=== PATIENT | male | born 1955 | race Caucasian/White ===

== ENCOUNTER 2017-10-14 03:40 | Emergency (ER) | payer BC ==
[~2017-10-14] VITALS: Ht 177.8 cm; Wt 72.6 kg
--- NOTE | 2017-10-14 03:58 | ER Report ---
History and Physical Time Seen By MD: 03:58 Hx. of Stated Complaint: PT REPORTS THAT HE HAS BEEN SICK FOR TWO DAYS. REPORTS HAVING FEELING OF SOB. DRY COUGH. BODY ACHES AND LOW GRADE FEVER. HPI/ROS CHIEF COMPLAINT: cough, shortness of breath and body aches HISTORY OF PRESENT ILLNESS: This is a 61-year-old male. He's been having a couple of days of symptoms of shortness of breath and cough. He also has been having body aches. These have been going on for 2 days now. Also having subjective fevers. Having some sore throat and congestion. Having nausea at times. Nothing seems to make this worse or better, although he did try some benzonatate capsules that helped. No problems with bowels or urination. Allergies: Coded Allergies: No Known Drug Allergies (Unverified , 10/14/17) Home Meds Active Scripts Benzonatate 100 Mg Cap (TESSALON PERLE 100 MG CAP) 100 Mg Capsule, 100 MG PO TID , #30 CAP 0 Refills Prov:ABEL ROBLES MD 10/14/17 Amoxicillin/Pot Clav 875-125 Mg Tab (AUGMENTIN 875-125 TABLET) 1 Each Tablet, 1 TAB PO Q12H, #20 TAB 0 Refills Prov:ABEL ROBLES MD 10/14/17 Reviewed Nurses Notes: Yes Hx Substance Use Disorder: No Hx Alcohol Use: Yes (SOCIAL DRINKER ) Constitutional Vital Sign - Last 24 Hours 10/14/17 10/14/17 10/14/17 10/14/17 03:45 03:49 04:00 04:30 Temp 98.7 Pulse 89 93 82 Resp 16 20 B/P (MAP) 185/99 (127) 185/99 159/97 (117) 150/84 (106) Pulse Ox 91 87 87 O2 Delivery Room Air 10/14/17 10/14/17 10/14/17 10/14/17 05:00 05:15 05:30 05:43 Pulse 87 92 90 87 Resp 20 18 23 16 B/P (MAP) 159/86 (110) 161/95 (117) 150/102 (118) Pulse Ox 88 88 88 92 O2 Delivery Room Air Physical Exam General Appearance: The patient is alert, has no immediate need for airway protection and no current signs of toxicity. Eyes: Pupils equal and round no injection. ENT: Normal oral mucosa. Moist mucous membranes. Erythematous throat. Normal tympanic membranes and canals. Neck: Neck is supple, he does have some submandibular lymphadenopathy. Respiratory: Chest is non tender, lungs are clear to auscultation. Cardiac: regular rate and rhythm Gastrointestinal: Abdomen is soft and non tender, no masses, bowel sounds normal. Musculoskeletal: Extremities have full range of motion. Skin: No rashes or lesions. [ ] DIFFERENTIAL DIAGNOSIS: After history and physical exam differential diagnosis was considered for patient with upper respiratory symptoms subjective of influenza, also will check a strep and chest x-ray. Medical Decision Making Data Points Result Diagram: 10/14/17 0350 10/14/17 0350 Laboratory Hematology Test 10/14/17 03:50 Red Blood Count 5.37 M/uL (4.00-5.60) Mean Corpuscular Volume 91.0 fL (80.0-96.0) Mean Corpuscular Hemoglobin 31.5 pg (26.0-33.0) Mean Corpuscular Hemoglobin Concent 34.6 g/dL (32.0-36.0) Red Cell Distribution Width 13.9 % (11.5-14.5) Mean Platelet Volume 9.9 fL (7.2-11.1) Neutrophils (%) (Auto) 73.8 % (39.4-72.5) Lymphocytes (%) (Auto) 12.0 % (17.6-49.6) Monocytes (%) (Auto) 9.6 % (4.1-12.4) Eosinophils (%) (Auto) 1.8 % (0.4-6.7) Basophils (%) (Auto) 2.8 % (0.3-1.4) Nucleated RBC Relative Count (auto) 0.1 /100WBC Neutrophils # (Auto) 6.1 K/uL (2.0-7.4) Lymphocytes # (Auto) 1.0 K/uL (1.3-3.6) Monocytes # (Auto) 0.8 K/uL (0.3-1.0) Eosinophils # (Auto) 0.2 K/uL (0.0-0.5) Basophils # (Auto) 0.2 K/uL (0.0-0.1) Nucleated RBC Absolute Count (auto) 0.01 K/uL Sodium Level 133 mmol/L (137-145) Potassium Level 4.1 mmol/L (3.5-5.0) Chloride Level 99 mmol/L (98-107) Carbon Dioxide Level 21 mmol/L (22-30) Blood Urea Nitrogen 13 mg/dl (9-21) Creatinine 0.70 mg/dl (0.66-1.25) Glomerular Filtration Rate Calc > 60.0 Random Glucose 97 mg/dl (75-110) Calcium Level 9.6 mg/dl (8.4-10.2) Total Bilirubin 0.6 mg/dl (0.2-1.3) Aspartate Amino Transf (AST/SGOT) 41 U/L (0-35) Alanine Aminotransferase (ALT/SGPT) 47 U/L (0-56) Alkaline Phosphatase 97 U/L (0-126) Total Protein 8.3 gm/dl (6.3-8.2) Albumin 4.7 g/dl (3.5-5.0) Influenza Virus Type A (PCR) Negative (NEGATIVE) Influenza Virus Type B (PCR) Negative (NEGATIVE) Group A Streptococcus Screen Positive (NEGATIVE) Chemistry Test 10/14/17 03:50 White Blood Count 8.3 k/uL (4.5-11.0) Red Blood Count 5.37 M/uL (4.00-5.60) Hemoglobin 16.9 g/dL (14.0-18.0) Hematocrit 48.9 % (42.0-52.0) Mean Corpuscular Volume 91.0 fL (80.0-96.0) Mean Corpuscular Hemoglobin 31.5 pg (26.0-33.0) Mean Corpuscular Hemoglobin Concent 34.6 g/dL (32.0-36.0) Red Cell Distribution Width 13.9 % (11.5-14.5) Platelet Count 271 K/uL (150-450) Mean Platelet Volume 9.9 fL (7.2-11.1) Neutrophils (%) (Auto) 73.8 % (39.4-72.5) Lymphocytes (%) (Auto) 12.0 % (17.6-49.6) Monocytes (%) (Auto) 9.6 % (4.1-12.4) Eosinophils (%) (Auto) 1.8 % (0.4-6.7) Basophils (%) (Auto) 2.8 % (0.3-1.4) Nucleated RBC Relative Count (auto) 0.1 /100WBC Neutrophils # (Auto) 6.1 K/uL (2.0-7.4) Lymphocytes # (Auto) 1.0 K/uL (1.3-3.6) Monocytes # (Auto) 0.8 K/uL (0.3-1.0) Eosinophils # (Auto) 0.2 K/uL (0.0-0.5) Basophils # (Auto) 0.2 K/uL (0.0-0.1) Nucleated RBC Absolute Count (auto) 0.01 K/uL Glomerular Filtration Rate Calc > 60.0 Calcium Level 9.6 mg/dl (8.4-10.2) Total Bilirubin 0.6 mg/dl (0.2-1.3) Aspartate Amino Transf (AST/SGOT) 41 U/L (0-35) Alanine Aminotransferase (ALT/SGPT) 47 U/L (0-56) Alkaline Phosphatase 97 U/L (0-126) Total Protein 8.3 gm/dl (6.3-8.2) Albumin 4.7 g/dl (3.5-5.0) Influenza Virus Type A (PCR) Negative (NEGATIVE) Influenza Virus Type B (PCR) Negative (NEGATIVE) Group A Streptococcus Screen Positive (NEGATIVE) EKG/Imaging Imaging CHEST PA AND LAT HISTORY: Cough and shortness of breath for several days. No other chest complaints. COMPARISON: None. TECHNIQUE: PA and lateral views of the chest. FINDINGS: Pulmonary: There is a calcified granuloma in the right middle lobe. Lungs otherwise are clear. There is no pneumothorax or pleural effusion. Cardiomediastinal: Cardiac and mediastinal silhouettes are within normal limits. There is mild aortic calcification. Bones/soft tissues: No acute osseous abnormality. There is mild degenerative change of the spine. The visible abdomen is normal. IMPRESSION: 1. No acute cardiopulmonary process. Report Dictated By: Zenaida Garcia at 10/14/2017 5:00 AM ED Course/Re-evaluation Clinical Indication for ER IV: Hydration, IV Access ED Course Patient was given a liter of normal saline. Mild improvement after this. Strep test is positive, influenza negative. We'll begin Augmentin. Decision to Disposition Date: Oct 14, 2017 Decision to Disposition Time: 05:33 Depart Departure Latest Vital Signs Vital Signs Date Time Temp Pulse Resp B/P (MAP) Pulse Ox O2 Delivery O2 Flow Rate FiO2 10/14/17 05:43 87 16 150/102 (118) 92 Room Air 10/14/17 03:49 98.7 Impression: Primary Impression: Strep throat Condition: Improved Disposition: HOME OR SELF-CARE New Scripts Benzonatate 100 Mg Cap (TESSALON PERLE 100 MG CAP) 100 Mg Capsule 100 MG PO TID, #30 CAP 0 Refills Prov: ABEL ROBLES MD 10/14/17 Amoxicillin/Pot Clav 875-125 Mg Tab (AUGMENTIN 875-125 TABLET) 1 Each Tablet 1 TAB PO Q12H, #20 TAB 0 Refills Prov: ABEL ROBLES MD 10/14/17 Patient Instructions: Strep Throat (ED) Additional Instructions: Augmentin 875/125 twice a day for 10 days. Benzonatate 100mg three times a day as needed for cough Follow-up with primary care if not improving in the next 5-7 days. Return to the ER if worsening symptoms. ABEL ROBLES MD Oct 14, 2017 03:58
[2017-10-14] MEDS ORDERED: NS(*) 0.9% 1000 ML BAG 1,000 ML IV ONE (04:25)
[2017-10-14 04:53] LABS: PLATELET COUNT, AUTOMATED 271 K/uL (150-450)
--- NOTE | 2017-10-14 05:04 | RADIOLOGY IMAGING REPORT ---
FACILITY: [facility] PATIENT NAME: Joey Joseph : 1955 MR: [id number] V: [id number] EXAM DATE: ORDERING PHYSICIAN: ABEL ROBLES TECHNOLOGIST: Location: [facility] - [place] Patient: Joey Joseph : 1955 Visit/Account:[id number] Date of Sevice: 10/14/2017 CHEST PA AND LAT HISTORY: Cough and shortness of breath for several days. No other chest complaints. COMPARISON: None. TECHNIQUE: PA and lateral views of the chest. FINDINGS: Pulmonary: There is a calcified granuloma in the right middle lobe. Lungs otherwise are clear. There is no pneumothorax or pleural effusion. Cardiomediastinal: Cardiac and mediastinal silhouettes are within normal limits. There is mild aortic calcification. Bones/soft tissues: No acute osseous abnormality. There is mild degenerative change of the spine. The visible abdomen is normal. IMPRESSION: 1. No acute cardiopulmonary process. Report Dictated By: Zenaida Garcia at 10/14/2017 5:00 AM Report E-Signed By: Zenaida Garcia at 10/14/2017 5:01 AM WSN:[id number]
[2017-10-14] MEDS ORDERED: AMOX/CLAV 875 MG TAB PO ONE (05:35)
[2017-10-14] MEDS ORDERED: AMOX-559 PO (05:35)
[2017-10-14] MEDS ORDERED: BENZ100C4 PO (05:35)
[2017-10-14 05:43] VITALS: BP 150/102
== END 2017-10-14 05:50 | disposition home or self-care (01) ==
LOC: ER 03:44
DX: J02.0 Streptococcal pharyngitis (principal)
CPT/HCPCS: 71046; 85025; 87081; 87502; 87880; 96360; 99284; J7030; 82040; 82247; 82310; 82374; 82435; 82565; 82947; 84075; 84132; 84155; 84295; 84450; 84460; 84520